=== PATIENT | male | born 1995 | race Hispanic/Latino ===

== ENCOUNTER 2016-08-30 04:03 | Emergency (ER) | payer OTHER ==
[2016-08-30 04:20] VITALS: BP 130/73; PULSE 85; RESP 17; TEMP 98.3; O2SAT 99
--- NOTE | 2016-08-30 04:35 | ED PDOC ---
HPI: Wound Care - HPI Time Seen by Provider: 08/30/16 04:32 Chief Complaint (Nursing): Abnormal Skin Integrity Chief Complaint (Provider): head injury History Per: Patient Exam Limitations: no limitations Additional Complaint(s): 20 yo M in ED for eval of laceration to scalp sustained today after head injury- no LOc, PARADA, vision changes dizziness, nausea vomiting change in mentation, speech or gait. tetatnus is uptodate. Past Medical History Reviewed: Historical Data, Nursing Documentation, Vital Signs Vital Signs: Last Vital Signs Temp 98.3 F 08/30/16 04:13 Pulse 85 08/30/16 04:13 Resp 17 08/30/16 04:13 BP 130/73 08/30/16 04:13 Pulse Ox 99 08/30/16 04:13 - Medical History PMH: No Chronic Diseases - Family History Family History: States: No Known Family Hx - Allergies Allergies/Adverse Reactions: Allergies Allergy/AdvReac Type Severity Reaction Status Date / Time No Known Allergies Allergy Verified 08/30/16 04:20 Review of Systems ROS Statement: Except As Marked, All Systems Reviewed And Found Negative Skin: Positive for: Lesions Physical Exam - Reviewed Nursing Documentation Reviewed: Yes Vital Signs Reviewed: Yes - Physical Exam Appears: Positive for: Well, Non-toxic, No Acute Distress Head Exam: Positive for: NORMAL INSPECTION, NORMOCEPHALIC. Negative for: ATRAUMATIC (laceartion to scalp-.5cm active bleeding) Skin: Positive for: Normal Color, Warm, DRY Eye Exam: Positive for: EOMI, Normal appearance, PERRL ENT: Positive for: Normal ENT Inspection Cardiovascular/Chest: Positive for: Regular Rate, Rhythm Respiratory: Positive for: CNT, Normal Breath Sounds Neurologic/Psych: Positive for: Alert, Oriented - ECG O2 Sat by Pulse Oximetry: 99 - Progress ED Course And Treament: laceration repair-no CT indicated at this time. Procedure: Wound Repair - Time Performed Time Performed: 04:37 - Time Out Time Out: Side verified, Site verified, Patient ID confirmed, Sterile procedures obs. - Consent Obtained Consent obtained: Emergent consent implied - Performed by Performed by: Mid-level Provider - Indications Indication(s):: Laceration - Location Location:: Scalp Depth:: Epidermis - Irrigated Irrigated with ml of normal saline: 50 - Wound repair method [place]:: Steri-strips ([place] #2) - Patient tolerated procedure Patient Tolerated Procedure:: Well Medical Decision Making Medical Decision Making: advised to not wet wound for 10da and rerutn to ED for removal. stable appearing and ready for d.c Disposition - Clinical Impression Clinical Impression: Laceration - Patient ED Disposition Is Patient to be Admitted: No Counseled Patient/Family Regarding: Studies Performed, Diagnosis, Need For Followup - Disposition Disposition: Routine/Home Disposition Time: 04:39 Condition: STABLE Instructions: Staple Care (ED)
== END 2016-08-30 05:00 | disposition home or self-care (01) ==
LOC: H.ER 04:03
DX: S01.01XA Laceration without foreign body of scalp, initial encounter (principal); X58.XXXA Exposure to other specified factors, initial encounter